=== PATIENT | male | born 1955 | race Caucasian/White ===

== ENCOUNTER 2022-02-04 10:35 | Inpatient (IN) | payer OTHER, MEDICARE ==
[~2022-02-04] VITALS: Ht 162.6 cm; Wt 82.6 kg
[2022-02-04] MEDS ORDERED: MORPHINE SULFATE 2 MG/1 ML DISP.SYRIN IV ONE (11:00)
[2022-02-04] MEDS ORDERED: ONDANSETRON 4 MG/2 ML VIAL IV ONE (11:00)
[2022-02-04] MEDS ORDERED: IV NORMAL SALINE 1000 ML BAG IV ONE (11:00)
[2022-02-04 11:05] LABS: *BILIRUBIN,URIN NEGATIVE (NEGATIVE); *BLOOD, URINE NEGATIVE (NEGATIVE); *CLARITY,URINE CLEAR (CLEAR); *COLOR,URINE YELLOW (YELLOW); *KETONES,URINE NEGATIVE (NEGATIVE); *UROBILINOGEN,URINE 0.2 E.U./dl (NORMAL); LEUKOCYTE ESTERASE ,URINE NEGATIVE (NEGATIVE); NITRITE, URINE NEGATIVE (NEGATIVE); PH,URINE 5.5 (5.0-8.0); UGLUCOSE NEGATIVE (NEGATIVE)
[2022-02-04 11:08] LABS: HEMATOCRIT 45.7 % (36.7-47.1); MEAN CORPUSCULAR HEMOGLOBIN 31.6 uug (23.8-33.4); MEAN CORPUSCULAR VOLUME 90.3 fL (73.0-96.2); PLATELET COUNT (AUTO) 213 K/uL (152-348)
[2022-02-04] MEDS ORDERED: IV NORMAL SALINE 250 ML IV ONE (11:12)
[2022-02-04] MEDS ORDERED: SWABABLE VALVE TRANSFER SET EA MC ONE (11:12)
[2022-02-04] MEDS ORDERED: IOHEXOL 350 100 ML INFUS..BTL ONE (11:12)
[2022-02-04 11:17] LABS: CREATININE 1.3 mg/dL (0.6-1.3); POTASSIUM 4.2 mmol/L (3.5-5.1)
[2022-02-04 11:23] LABS: BILIRUBIN,DIRECT 0.1 mg/dL (0.0-0.2); BILIRUBIN,TOTAL 0.7 mg/dL (0.2-1.0); TOTAL PROTEIN, SERUM 7.3 g/dL (6.4-8.2)
[2022-02-04] MEDS ORDERED: ONDANSETRON 4 MG/2 ML VIAL ONE (11:26)
[2022-02-04] MEDS ORDERED: MORPHINE SULFATE 4 MG/1 ML DISP.SYRIN ONE (11:26)
--- NOTE | 2022-02-04 11:33 | NUR ---
DR WARREN AT BEDSIDE FOR EVALUATION SALINE LOCK STARTED; IV FLUIDS INITIATED. PAIN MED GIVEN ORDERED. Addendum: 02/04/22 at 1849 by ARTI RN in charge of pt. notified.
--- NOTE | 2022-02-04 12:06 | NUR ---
DOWN FOR CT SCAN - CONSENT SIGNED BY PATIENT FOR CTA OF ABD AND PELVIS.
[2022-02-04] MEDS ORDERED: ATOR20TA PO (12:23)
[2022-02-04] MEDS ORDERED: VALS160T2 PO (12:23)
[2022-02-04] MEDS ORDERED: HYDROMORPHONE 1 MG/1 ML DISP.SYRIN ONE (14:17)
--- NOTE | 2022-02-04 14:26 | NUR ---
C/O PROGRESSIVE BACKPAIN, NOTIFIED. PAIN MAD ADMINISTERED PER MD ORDER.
[2022-02-04] MEDS ORDERED: HYDROMORPHONE 1 MG/1 ML DISP.SYRIN IV ONE (14:30)
--- NOTE | 2022-02-04 15:19 | NUR ---
A call to Dr. Perry from vascular surgery and report to front office assistant legal administrative secretary message will be sent to awaiting call back.
[2022-02-04] MEDS ORDERED: ONDANSETRON 4 MG/2 ML VIAL IV PRN (17:15)
[2022-02-04] MEDS ORDERED: ACETAMINOPHEN 325 MG TABLET PO PRN (17:15)
--- NOTE | 2022-02-04 18:30 | NUR ---
REPORT GIVEN TO TELEMETRY TO NORA VASQUEZ BY NORA CASAREZ.
--- NOTE | 2022-02-04 18:47 | NUR ---
patient taken down for a ct head at this time and will be taken up to assigned room by compliance technician.
--- NOTE | 2022-02-04 19:00 | NUR ---
Received pt from er via [facility].Pt just went to ct head. Under the care of Dr.Berj Ruffin . Dx: AAA. Admission process and care plain initiated. Safety and comfort provided. Will continue to monitor.
--- NOTE | 2022-02-04 19:01 | NUR ---
Belonging list done. intermediate assessment done. Pt has back pain. Safety provided. Will continue to monitor.
[2022-02-04 20:03] VITALS: BP 183/84
--- NOTE | 2022-02-04 20:40 | NUR ---
Dr. Ruffin ordered NPO midnight for Cta areli and Carotid sujatha .
[2022-02-04] MEDS: ATORVASTATIN 20 MG TABLET PO SCH (20:54)
[2022-02-04] MEDS: MORPHINE SULFATE 2 MG/1 ML DISP.SYRIN IV PRN (20:56)
[2022-02-04] MEDS: hydrALAZINE HCL 20 MG/1 ML VIAL IV PRN (21:00)
--- NOTE | 2022-02-04 21:00 | NUR ---
at 2100h Apresoline prn given to pt for 183/84 BP. Pt in no acute distress. Will continue to monitor
[2022-02-04 21:46] VITALS: BP 150/75
--- NOTE | 2022-02-04 22:00 | NUR ---
At morphine sulfate inj 2mg prn given to pt for 9/10pain scale on lower back pain. Pt tolerated it well. After an hour pt stated it subsided but its still has some pain. Will continue to monitor.
[2022-02-05] VITALS (9 sets, daily range): BP systolic 140–173; BP diastolic 75–91
[2022-02-05] MEDS: MORPHINE SULFATE 2 MG/1 ML DISP.SYRIN IV PRN (03:49)
--- NOTE | 2022-02-05 04:22 | NUR ---
at 0349H pt was given morphine 2mg prn for pain. Pt tolerated it well. Will continue to monitor.
[2022-02-05] MEDS: hydrALAZINE HCL 20 MG/1 ML VIAL IV PRN (05:15)
--- NOTE | 2022-02-05 05:15 | NUR ---
Pt given Apresoline 10 mg prn for RYAN. Pt toleratd it well. Will continue to monitor.
--- NOTE | 2022-02-05 06:00 | NUR ---
Pt called and notify nurse that he felt different. He said he feel like he is having headache and hot. He want cold compress. We checked his vital signs. Vital signs within normal limit. Sinus rhythm on the monitor. Temperature is 98. BP of 152/75. Pt 100% oxygen saturation. Will continue to monitor and observe.
[2022-02-05 06:47] LABS: HEMATOCRIT 44.7 % (36.7-47.1); MEAN CORPUSCULAR HEMOGLOBIN 31.9 uug (23.8-33.4); MEAN CORPUSCULAR VOLUME 90.4 fL (73.0-96.2); PLATELET COUNT (AUTO) 199 K/uL (152-348)
[2022-02-05 07:01] LABS: BILIRUBIN,TOTAL 0.9 mg/dL (0.2-1.0); CREATININE 1.3 mg/dL (0.6-1.3); PHOSPHOROUS 2.8 mg/dL (2.5-4.9); TOTAL PROTEIN, SERUM 6.6 g/dL (6.4-8.2)
[2022-02-05] MEDS ORDERED: IOHEXOL 350 100 ML INFUS..BTL ONE (07:22)
[2022-02-05] MEDS ORDERED: SWABABLE VALVE TRANSFER SET EA MC ONE (07:23)
[2022-02-05] MEDS ORDERED: IV NORMAL SALINE 250 ML IV ONE (07:23)
[2022-02-05] MEDS ORDERED: IV NORMAL SALINE 500 ML IV ONE (07:45)
--- NOTE | 2022-02-05 07:45 | NUR ---
NS500 bolus to be given to pt as per order of Acosta Suarez DNP. Endorse to incoming nurse.
--- NOTE | 2022-02-05 07:55 | NUR ---
Attending JENNIFER Shane and Neurologist Dr. Martínez at bedside discussing care plan with pt.
--- NOTE | 2022-02-05 08:00 | NUR ---
Received pt. AAOX4. cardiac_wise on NSR. sbp in the 160's for which He was medicated. On room air with saturation of 10%. no sob. LAC G-20 patent orders for 500 bolus received at this time and implemented. Will continue to monitor.
[2022-02-05] MEDS ORDERED: VALSARTAN 160 MG TABLET PO SCH (09:00)
[2022-02-05] MEDS: IV NS 1000 ML 1,000 ML IV PRN (09:00)
[2022-02-05] MEDS: VALSARTAN 160 MG TABLET PO SCH ×2 (09:01→21:01)
--- NOTE | 2022-02-05 11:00 | NUR ---
James senior technologist in and pt. refused procedure as I was informed at 1200
--- NOTE | 2022-02-05 12:51 | NUR ---
Patient interview to find out reason why He's currently refusing CT brain, carotid with his brother at bedside He agreed to have procedure done. dental laboratory technician apprentice called and informed.
--- NOTE | 2022-02-05 13:34 | NUR ---
Patient back from CT.
--- NOTE | 2022-02-05 20:13 | NUR ---
Hands off report to Opal MELENDEZ. Pt stable and in no acute distress. Pt given Tylenol 650 mg prn at 1958h for headache.
[2022-02-05] MEDS: ATORVASTATIN 20 MG TABLET PO SCH (21:01)
[2022-02-06 00:17] VITALS: BP 140/76
[2022-02-06 04:26] VITALS: BP 154/72
--- NOTE | 2022-02-06 04:59 | NUR ---
Awake alert and oriented x4 Needs attended. VSS No acute distress noted. Denies any pain nor any discomfort. Will monitor patient.
[2022-02-06 07:28] LABS: CREATININE 1.5 mg/dL (0.6-1.3)
--- NOTE | 2022-02-06 08:00 | NUR ---
RESTING COMFORTABLY MIN BED, STILL C/O BEARABLE PAIN RIGHT SIDE OF BACK AND ABDOMEN 2-12/27. C/O CONSTIPATION WILL NOTIFY
[2022-02-06] MEDS: VALSARTAN 160 MG TABLET PO SCH ×2 (08:53→20:18)
[2022-02-06] MEDS: IV NS 1000 ML 1,000 ML IV PRN ×2 (08:53→22:26)
--- NOTE | 2022-02-06 10:40 | NUR ---
MIRALAX GIVEN AND OBSERVE. WILL START NORCO PRN FOR PAIN
[2022-02-06] MEDS: HYDROCODONE/APAP 5-325MG TABLET PO PRN (11:27)
[2022-02-06] MEDS: MIRALAX 17 GM POWD.PACK PO PRN (11:27)
[2022-02-06 11:59] VITALS: BP 125/83
--- NOTE | 2022-02-06 12:00 | NUR ---
SEEN BY HOSPITALIST AND MEDICAID SPECIALIST SEE NOTES. WILL FOLLOW-UP LIPASE AT 1800 TONIGHT
[2022-02-06 16:03] VITALS: BP 133/68
--- NOTE | 2022-02-06 17:09 | NUR ---
CONTINUE WITH PLAN OF CARE AND PAIN MANAGEMENT FOR , TOLERATING IVF AT 100 MLS/HR.
--- NOTE | 2022-02-06 19:30 | NUR ---
RECEIVED PT AWAKE, ALERT AND ORIENTEDX4. PY IN NO ACUTE DISTRESS. IV INTACT. SAFETY AND COMFORT PROVIDED. WILL CONTINUE TO MONITOR.
[2022-02-06] MEDS: ATORVASTATIN 20 MG TABLET PO SCH (20:18)
[2022-02-06 20:50] VITALS: BP 124/69
[2022-02-07 04:00] VITALS: BP 136/78
[2022-02-07] MEDS: MIRALAX 17 GM POWD.PACK PO PRN (05:48)
--- NOTE | 2022-02-07 06:34 | NUR ---
Pt in no acute distress. Pt IV intact.Prescribed medication given and pt tolerated it well. Safety and comfort provided. PT vital signs within normal limit. MIralax prn given to promote bowel movement and prevent constipation. All needs are met. Will endorse to incoming nurse for continuity of care.
[2022-02-07 06:55] LABS: HEMATOCRIT 40.5 % (36.7-47.1); MEAN CORPUSCULAR HEMOGLOBIN 32.2 uug (23.8-33.4); MEAN CORPUSCULAR VOLUME 90.2 fL (73.0-96.2); PLATELET COUNT (AUTO) 181 K/uL (152-348)
[2022-02-07 07:01] LABS: CREATININE 1.4 mg/dL (0.6-1.3); POTASSIUM 4.3 mmol/L (3.5-5.1)
--- NOTE | 2022-02-07 07:43 | NUR ---
Arrived to patient's room awake with no signs of distress or discomfort. Patient seen by Nurse Practitioner. Patient to remain NPO until lipase draw at 1500. In accordance to patient's lipase levels, patient may be discharged if MANAGER GOVERNMENT see's fit. Bed left in lowest position. IV site intact and patent. Bed left in lowest position with call light within reach. Will continue to monitor patient throughout shift.
[2022-02-07] MEDS: IV NS 1000 ML 1,000 ML IV PRN (08:42)
[2022-02-07] MEDS: VALSARTAN 160 MG TABLET PO SCH (08:47)
[2022-02-07 12:00] VITALS: BP 147/70
[2022-02-07 15:25] LABS: CREATININE 1.3 mg/dL (0.6-1.3)
[2022-02-07] MEDS: HYDROCODONE/APAP 5-325MG TABLET PO PRN (15:53)
[2022-02-07 16:00] VITALS: BP 144/76
--- NOTE | 2022-02-07 16:38 | NUR ---
Patient discharged from unit. IV site removed. ID badge removed. Discharge education provided.
[2022-02-07] MEDS ORDERED: OXYC-128 PO ×2 (16:53→17:06)
== END 2022-02-07 16:35 | disposition home or self-care (01) | DRG 640 ==
LOC: ER 10:35 → MEDSURG3 18:43 → TELE3 19:00 → MEDSURG3 02-06 10:16
PROVIDERS: ADMIT Internal Medicine; ATTEND Nurse Practitioner Acute Care
DX: E86.0 Dehydration (principal); K85.90 Acute pancreatitis without necrosis or infection, unspecified; I71.02 Dissection of abdominal aorta; N17.0 Acute kidney failure with tubular necrosis; R55 Syncope and collapse; E66.9 Obesity, unspecified; E78.5 Hyperlipidemia, unspecified; G89.29 Other chronic pain; I70.0 Atherosclerosis of aorta; Z87.442 Personal history of urinary calculi; I10 Essential (primary) hypertension; Z87.891 Personal history of nicotine dependence; I70.8 Atherosclerosis of other arteries; Z68.31 Body mass index [BMI] 31.0-31.9, adult
CPT/HCPCS: 36415; 70450; 70496; 71045; 83690; 83735; 84100; 85025; 85730; 93005; 93307; 97161; A4663; G0378; J0360; J1170; J2270; J2405; J7040; Q9967